=== PATIENT | female | born 1950 | race Caucasian/White ===

== ENCOUNTER 2018-04-20 10:32 | Inpatient (IN) | payer MEDICARE ==
--- NOTE | 2018-04-20 11:11 | Short Stay Summary ---
Short Stay Documentation - History Principal diagnosis: malfunctioning dialysis access Past Medical History: dialysis, ESRD Past Surgical History: Other (multiple B upper extremity accesses) Social history: other (recently moved from [place]) - Allergies and Medications Current Medications: Allergies No Known Allergies Allergy (Unverified 04/20/18 10:32) - Physical exam General appearance: no acute distress HEENT: Atraumatic Lungs: Normal air movement Breasts: deferred Gastrointestinal: normal Female Genitourinary: deferred Rectal Exam: deferred Extremities: abnormal (decreased thrill RUE fistula) Neurological: Normal gait, Normal speech, Normal tone - Brief post op/procedure progress note Date of procedure: 04/20/18 Pre-op diagnosis: malfunctioning dialysis access, hyperkalemia Post-op diagnosis: same Procedure: Ultrasound and fluoroscopic guided placement of vascath Anesthesia: local Surgeon: TOSHA QUEVEDO Estimated blood loss: minimal Pathology: none Condition: stable - Disposition Condition at discharge: Good Disposition: DC/TX-02 [facility] HOSP IP Short Stay Discharge Plan Activity: advance as tolerated Weight Bearing Status: Weight Bear as Tolerated Diet: regular Wound: keep clean and dry, per your surgeon's advice Follow up with: PRIMARY CARE, [Primary Care Provider] - 7 Days
[2018-04-20] MEDS ORDERED: HEPARIN/NS 5000 UNIT/500ML(CATH LAB) 500 ML IR ONE (13:01)
[2018-04-20] MEDS ORDERED: HEPARIN 10,000 UNITS/10 ML ONE (13:01)
[2018-04-20] MEDS ORDERED: XYLOCAINE 2% INFILTRATI ONE (13:01)
[2018-04-20] MEDS ORDERED: VERSED ONE (13:02)
[2018-04-20] MEDS ORDERED: SUBLIMAZE ONE (13:02)
[2018-04-20] MEDS ORDERED: SODIUM CHLORIDE FLUSH SYRINGE 10 ML IV PRN (13:40)
[2018-04-20] MEDS ORDERED: PROVENTIL IH PRN (13:40)
[2018-04-20] MEDS ORDERED: ZOFRAN IV PRN (13:40)
--- NOTE | 2018-04-20 13:42 | History and Physical Report ---
History of Present Illness Chief complaint: Fistula malfunction History of present illness: 68 YO Female with ESRD on HD (T,R,Sa), DM, HTN, PVD, Anemia. Pt admitted directly at the request of Dr. Burger. Pt found to have ESRD needing dialysis, as well as hyperkalemia. Pt admitted directly. Nephrology service consulted for urgent dialysis. Pt seen and evaluated postoperatively in the dialysis suits. Pt resting comfortable. Pt denies fever, chills, CP, Palpitations, NVD, No reported nursing events. Past History Past Medical History: diabetes, dialysis, ESRD, hypertension, PVD Past Surgical History: hernia repair, Other (multiple B upper extremity accesses) Social history: , other (recently moved from [place]) Family history: diabetes, hypertension Medications and Allergies Allergies Allergy/AdvReac Type Severity Reaction Status Date / Time No Known Allergies Allergy Unverified 04/20/18 10:32 Home Medications Medication Instructions Recorded Confirmed Last Taken Type Levemir VIAL 30 units SQ BID 04/20/18 04/20/18 04/19/18 History 30units Lispro Insulin [Humalog] 15 - 20 units SQ AC 04/20/18 04/20/18 04/19/18 History 20units Sucroferric Oxyhydroxide [Velphoro] 1 tab PO AC 04/20/18 04/20/18 04/19/18 History 2 tabs Active Meds: Active Medications Acetaminophen (Tylenol) 650 mg PO Q4H PRN PRN Reason: Pain MILD(1-3)/Fever >100.5/LOPEZ Albuterol (Proventil) 2.5 mg IH Q4HRT PRN PRN Reason: Shortness Of Breath Ondansetron HCl (Zofran) 4 mg IV Q8H PRN PRN Reason: Nausea And Vomiting Sodium Chloride (Sodium Chloride Flush Syringe 10 Ml) 10 ml IV BID ALEAH Sodium Chloride (Sodium Chloride Flush Syringe 10 Ml) 10 ml IV PRN PRN PRN Reason: LINE FLUSH Review of Systems Constitutional: no weight loss, no weight gain, no fever, no chills Ears, nose, mouth and throat: no ear pain, no ear discharge, no sinus pressure Breasts: no change in shape, no mass Cardiovascular: no chest pain, no palpitations, no edema, no lightheadedness Respiratory: no cough, no excessive sputum, no hemoptysis Gastrointestinal: no abdominal pain, no nausea, no vomiting, no diarrhea Genitourinary Female: no pelvic pain, no menorrhagia, no urinary frequency Rectal: no incontinence, no bleeding, no itching Musculoskeletal: no shooting arm pain, no low back pain, no leg numbness/tingling Integumentary: no rash, no redness, no wounds, no boils Neurological: no transient paralysis, no parathesias, no tingling, no tremors Psychiatric: no anxiety, no change in sleep habits, no insomnia Endocrine: no cold intolerance, no polyphagia, no polyuria, no flushing Hematologic/Lymphatic: no easy bruising, no lymphadenopathy Allergic/Immunologic: no urticaria, no allergic rhinitis, no wheezing Exam - Constitutional Vitals: Temp Pulse Resp BP Pulse Ox 98.1 F 99 H 16 198/78 99 04/20/18 11:11 04/20/18 11:11 04/20/18 11:11 04/20/18 11:11 04/20/18 11:11 General appearance: Present: mild distress - EENT Eyes: Present: PERRL ENT: hearing intact, clear oral mucosa - Neck Neck: Present: supple, normal ROM - Respiratory Respiratory effort: normal Respiratory: bilateral: CTA - Cardiovascular Heart Sounds: Present: S1 & S2. Absent: rub, click - Extremities Extremities: pulses symmetrical, No edema Peripheral Pulses: within normal limits - Abdominal General gastrointestinal: Present: soft, non-tender, non-distended, normal bowel sounds Female genitourinary: Present: normal - Integumentary Integumentary: Present: clear, warm, dry - Musculoskeletal Musculoskeletal: gait normal, strength equal bilaterally - Psychiatric Psychiatric: appropriate mood/affect, intact judgment & insight - Neurologic Neurologic: CNII-XII intact, moves all extremities Results - Labs CBC & Chem 7: 04/20/18 15:35 Labs: Abnormal lab results 04/20/18 Range/Units 11:20 Potassium 6.6 H* (3.6-5.0) mmol/L Assessment and Plan - Patient Problems (1) ESRD (end stage renal disease) Current Visit: Yes Status: Acute Plan to address problem: Nephrology consulted postoperatively for urgent dialysis, bmp, monitor uop q shift, avoid nephrotoxic agents. (2) HTN (hypertension) Current Visit: Yes Status: Acute Qualifiers: Hypertension type: essential hypertension Qualified Code(s): I10 - Essential (primary) hypertension Plan to address problem: monitor bp q shift, (3) DVT prophylaxis Current Visit: Yes Status: Acute Plan to address problem: scd to ble while in bed (4) Malfunction of arteriovenous dialysis fistula Current Visit: Yes Status: Acute Qualifiers: Encounter type: initial encounter Qualified Code(s): T82.590A - Other mechanical complication of surgically created arteriovenous fistula, initial encounter Plan to address problem: Vascular surgery consulted,
[2018-04-20] MEDS ORDERED: TYLENOL PO PRN (14:00)
[2018-04-20] MEDS ORDERED: KIONEX PO ONE (14:00)
[2018-04-20] MEDS ORDERED: CALCIUM GLUCONATE 1,000 MG in NACL 0.9% 100 ML IV ONE (14:00)
--- NOTE | 2018-04-20 15:11 | Operative Report ---
Operative Report Operative Report: Exam: Ultrasound and fluoroscopic guided placement of vascath Clinical indication: Patient with dialysis access malfunction and hyperkalemia Date: 04/20/2018 Procedure: Following an explanation of the risks, benefits and alternative; written informed consent was obtained. The patient was brought to the injury graphics suite placed in supine position on the examination table. Initial ultrasound evaluation of her right groin demonstrated a patent right common femoral vein. The patient's groin was prepped and draped in the usual sterile fashion. 1% lidocaine was used for anesthesia. Under ultrasound guidance, the right common femoral vein was cannulated with a 7 cm 18-gauge needle. 0.035 guidewire was advanced centrally under fluoroscopy. The needle was removed. Following serial dilation over the guidewire under fluoroscopy, a 30 cm dialysis catheter with pigtail was placed over the guidewi re advanced centrally under fluoroscopy. The guidewire was removed. All 3 ports returned nonpulsatile blood. The catheter was flushed and locked with appropriate volumes of heparin. The catheter was securely fastened to the skin surface using 3-0 nylon suture and a sterile dressing applied. The patient tolerated the procedure well. There were no immediate post procedure complications. Conscious sedation was administered under the guidance of radiologic nursing. Continuous cardio pulmonary monitoring was utilized. Impression: Ultrasound and fluoroscopic guided placement of VasCath via the right common femoral vein.
[2018-04-20] MEDS ORDERED: APRESOLINE IV ONE (15:18)
[2018-04-20] MEDS ORDERED: NACL 0.9% 100 ML IV PRN ×2 (15:39→16:30)
[2018-04-20 17:15] LABS: Hepatitis B Surface Antigen Non-Reactive (Negative); Hepatitis C Virus Antibody Non-Reactive (NonReactive)
[2018-04-20] MEDS ORDERED: LEVEMIR 30 UNIT SQ SCH (22:00)
[2018-04-20] MEDS: LANTUS SUB-Q SCH (23:30)
[2018-04-20] MEDS: SODIUM CHLORIDE FLUSH SYRINGE 10 ML IV SCH (23:30)
[2018-04-21 07:22] LABS: Calcium 7.9 mg/dL (8.4-10.2)
[2018-04-21] MEDS: HumaLOG SUB-Q SCH ×3 (08:56→13:56)
[2018-04-21] MEDS: LANTUS SUB-Q SCH (10:09)
[2018-04-21] MEDS: SODIUM CHLORIDE FLUSH SYRINGE 10 ML IV SCH ×2 (10:09→22:17)
[2018-04-21 13:08] LABS: Hematocrit 31.6 % (30.3-42.9); Hemoglobin 10.8 gm/dl (10.1-14.3); Mean Corpuscular HGB Conc 34 % (30-34); Mean Corpuscular Volume 94 fl (79-97); Platelet Count 121 K/mm3 (140-440); Red Blood Count 3.35 M/mm3 (3.65-5.03); Red Cell Distribution Width 13.5 % (13.2-15.2)
[2018-04-21] MEDS: SUCROFERRIC OXYHYDROXIDE PO SCH ×2 (13:11→17:37)
[2018-04-21] MEDS: HumuLIN R SUB-Q SCH ×3 (13:13→22:50)
--- NOTE | 2018-04-21 14:36 | Progress Note ---
Assessment and Plan ESRD on HD - consulted renal, on MWF schedule HTN, stable - cont to monitor Malfunctioning av access - s/p vascath placed - will follow VS recommendation Hyperkalemia, due to ESRD - monitor bmp DVT Px - heparin Subjective Date of service: 04/21/18 Principal diagnosis: malfunctioning dialysis access Interval history: pt seen and examined denies any chest pain s/p vascath placed yesterday for HD Objective - Constitutional Vitals: Vital Signs - 12hr 04/21/18 04/21/18 04/21/18 02:47 04:45 08:45 Temperature 98.9 F Pulse Rate 98 H Pulse Rate [ 102 H Right Radial] Respiratory 16 16 Rate Blood Pressure 164/65 O2 Sat by Pulse 97 96 97 Oximetry 04/21/18 11:46 Temperature 98.0 F Pulse Rate 90 Pulse Rate [ Right Radial] Respiratory 20 Rate Blood Pressure 158/57 O2 Sat by Pulse 96 Oximetry General appearance: Present: no acute distress, well-nourished - EENT Eyes: PERRL, EOM intact ENT: hearing intact, clear oral mucosa Ears: bilateral: normal - Neck Neck: supple, normal ROM - Respiratory Respiratory effort: normal Respiratory: bilateral: CTA - Cardiovascular Rhythm: regular Heart Sounds: Present: S1 & S2. Absent: gallop, rub Extremities: pulses intact, No edema, normal color, Full ROM - Gastrointestinal General gastrointestinal: Present: soft, non-tender, non-distended, normal bowel sounds - Integumentary Integumentary: clear, warm, dry - Musculoskeletal Musculoskeletal: 1, strength equal bilaterally - Neurologic Neurologic: moves all extremities - Psychiatric Psychiatric: memory intact, appropriate mood/affect, intact judgment & insight - Labs CBC & Chem 7: 04/21/18 12:40 04/21/18 06:29 Labs: Abnormal lab results 04/20/18 04/20/18 04/21/18 Range/Units 15:35 23:04 06:29 RBC (3.65-5.03) M/mm3 Plt Count (140-440) K/mm3 Potassium 5.3 H (3.6-5.0) mmol/L BUN 37 H (7-17) mg/dL Creatinine 8.2 H (0.7-1.2) mg/dL Glucose 120 H (65-100) mg/dL POC Glucose 167 H (70-105) Calcium 7.9 L (8.4-10.2) mg/dL 04/21/18 04/21/18 Range/Units 11:37 12:40 RBC 3.35 L (3.65-5.03) M/mm3 Plt Count 121 L (140-440) K/mm3 Potassium (3.6-5.0) mmol/L BUN (7-17) mg/dL Creatinine (0.7-1.2) mg/dL Glucose (65-100) mg/dL POC Glucose 67 L (70-105) Calcium (8.4-10.2) mg/dL
--- NOTE | 2018-04-21 15:49 | Consultation ---
History of Present Illness - Reason for Consult Consult date: 04/21/18 end stage renal disease Requesting physician: LUPE MONCADA - History of Present Illness 68 YO Female with ESRD on HD (T,R,Sa), DM, HTN, PVD, Anemia. Pt admitted directly at the request of Dr. Burger. Pt found to have ESRD needing dialysis, as well as hyperkalemia. Pt admitted directly. Nephrology service consulted for urgent dialysis. Pt seen and evaluated postoperatively in the dialysis suits. Pt resting comfortable. Pt denies fever, chills, CP, Palpitations, NVD, No reported nursing events. Past History Past Medical History: diabetes, dialysis, ESRD, hypertension, PVD Past Surgical History: hernia repair, Other (multiple B upper extremity accesses) Social history: , other (recently moved from [place]) Family history: diabetes, hypertension Review of Systems Constitutional: no weight loss, no weight gain, no fever, no chills Ears, nose, mouth and throat: no ear pain, no ear discharge, no sinus pressure Breasts: no change in shape, no mass Cardiovascular: no chest pain, no palpitations, no edema, no lightheadedness Respiratory: no cough, no excessive sputum, no hemoptysis Gastrointestinal: no abdominal pain, no nausea, no vomiting, no diarrhea Genitourinary Female: no pelvic pain, no menorrhagia, no urinary frequency Rectal: no incontinence, no bleeding, no itching Musculoskeletal: no shooting arm pain, no low back pain, no leg numbness/tingling Integumentary: no rash, no redness, no wounds, no boils Neurological: no transient paralysis, no parathesias, no tingling, no tremors Psychiatric: no anxiety, no change in sleep habits, no insomnia Endocrine: no cold intolerance, no polyphagia, no polyuria, no flushing Hematologic/Lymphatic: no easy bruising, no lymphadenopathy Allergic/Immunologic: no urticaria, no allergic rhinitis, no wheezing Past History Past Medical History: diabetes, dialysis, ESRD, hypertension, PVD Past Surgical History: hernia repair, Other (multiple B upper extremity accesses) Social history: , other (recently moved from [place]) Family history: diabetes, hypertension Medications and Allergies Allergies Allergy/AdvReac Type Severity Reaction Status Date / Time No Known Allergies Allergy Unverified 04/20/18 10:32 Home Medications Medication Instructions Recorded Confirmed Last Taken Type Levemir VIAL 30 units SQ BID 04/20/18 04/20/18 04/19/18 History 30units Lispro Insulin [Humalog] 15 - 20 units SQ AC 04/20/18 04/20/18 04/19/18 History 20units Sucroferric Oxyhydroxide [Velphoro] 1 tab PO AC 04/20/18 04/20/18 04/19/18 History 2 tabs Active Meds: Active Medications Acetaminophen (Tylenol) 650 mg PO Q4H PRN PRN Reason: Pain MILD(1-3)/Fever >100.5/LOPEZ Albuterol (Proventil) 2.5 mg IH Q4HRT PRN PRN Reason: Shortness Of Breath Sodium Chloride (Nacl 0.9%) 100 mls @ 999 mls/hr IV ROLLY PRN PRN Reason: Hypotension Insulin Human Regular (Humulin R) 0 units SUB-Q ACHS [facility]; Protocol Last Admin: 04/21/18 13:13 Dose: Not Given Documented by: Miscellaneous Medication (Sucroferric Oxyhydroxide [Velphoro]) 1 tab PO [facility] Last Admin: 04/21/18 13:11 Dose: 1 tab Documented by: Ondansetron HCl (Zofran) 4 mg IV Q8H PRN PRN Reason: Nausea And Vomiting Sodium Chloride (Sodium Chloride Flush Syringe 10 Ml) 10 ml IV BID [facility] Last Admin: 04/21/18 10:09 Dose: 10 ml Documented by: Sodium Chloride (Sodium Chloride Flush Syringe 10 Ml) 10 ml IV PRN PRN PRN Reason: LINE FLUSH Exam - Vital Signs Vital signs: Vital Signs Temp Pulse Resp BP Pulse Ox 98.1 F 99 H 16 198/78 99 04/20/18 11:11 04/20/18 11:11 04/20/18 11:11 04/20/18 11:11 04/20/18 11:11 - Physical Exam Narrative exam: General appearance: Present: mild distress - EENT Eyes: Present: PERRL ENT: hearing intact, clear oral mucosa - Neck Neck: Present: supple, normal ROM - Respiratory Respiratory effort: normal Respiratory: bilateral: CTA - Cardiovascular Heart Sounds: Present: S1 & S2. Absent: rub, click - Extremities Extremities: pulses symmetrical, No edema Peripheral Pulses: within normal limits - Abdominal General gastrointestinal: Present: soft, non-tender, non-distended, normal bowel sounds Female genitourinary: Present: normal - Integumentary Integumentary: Present: clear, warm, dry - Musculoskeletal Musculoskeletal: gait normal, strength equal bilaterally - Psychiatric Psychiatric: appropriate mood/affect, intact judgment & insight - Neurologic Neurologic: CNII-XII intact, moves all extremities Results - Lab Results 04/21/18 12:40 04/21/18 06:29 Most recent lab results Calcium 7.9 mg/dL (8.4-10.2) L 04/21/18 06:29 Assessment and Plan IMpression: * ESRD * HTN * malfunctioning av access * hyperkalemia Plan: * HD qMWF as inpatient * uf as tolerated * strict i/os * vasc cath per vascular, needs perm cath or thrombectomy prior to dc * daily lytes * ok to dc home from renal standpoint once perm cath placed or thrombectomy pe rformed
[2018-04-22] MEDS: HumuLIN R SUB-Q SCH ×4 (08:31→23:03)
[2018-04-22] MEDS: SUCROFERRIC OXYHYDROXIDE PO SCH ×3 (08:32→18:10)
[2018-04-22] MEDS ORDERED: XYLOCAINE 2% INFILTRATI ONE (08:47)
[2018-04-22] MEDS ORDERED: HEPARIN 10,000 UNITS/10 ML ONE (08:47)
[2018-04-22] MEDS ORDERED: HEPARIN/NS 5000 UNIT/500ML(CATH LAB) 1,000 ML IR ONE (08:47)
[2018-04-22] MEDS ORDERED: SUBLIMAZE ONE (09:03)
[2018-04-22] MEDS ORDERED: VERSED ONE (09:03)
[2018-04-22] MEDS ORDERED: NACL 0.9% 500 ML 500 ML ONE (09:04)
--- NOTE | 2018-04-22 09:50 | Operative Report ---
Operative Report Operative Report: Exam: Left upper extremity fistulogram, venoplasty Clinical indication: Patient with a history of hyperkalemia and malfunctioning dialysis access on admission status post placement of a Vas-Cath. Fistula placed in [place] Date: 04/22/2018 Procedure: Following an expiration of the risks, benefits and alternatives; written informed consent was obtained. The patient was brought to the angiographic suite placed in supine position on the examination table. Initial evaluation of her fistula demonstrated a thrill. The patient's left upper arm was prepped and draped in usual sterile fashion. 1% lidocaine was used for anesthesia. Under ultrasound guidance of fistula was cannulated towards the venous outflow using a 7 cm 21-gauge needle. A 0.018 guidewire was advanced centrally. The needle was removed and a micro-sheath placed. A 0.018 guidewire was exchanged for a 0.035 guidewire and the micro-sheath exchanged for a 7 [place] vascular sheath. Contrast was injected through the sheath and imaging obtained throughout the fistula and to the central veins. The patient has an unknown elevated brachial basilic fistula with VWING cannulation devices area in the body of the fistula was widely patent. 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 The Profore intravertebral catheter and 0.035 guidewire were then used to manipulate through the stenoses. The stenosis in the peripheral segment and the cephalic arch was ballooned using an 8 mm balloon insufflated nominal atmospheres for 45 seconds. The stenosis in the central segment of the subclavian vein was ballooned using an 8 mm balloon insufflated to nominal atmospheres for 60 seconds. Post venoplasty imaging was obtained which demonstrated residual less than 20% stenosis. This point, the guidewires she swerved removed and hemostasis achieved using 4-0 Vicryl suture and Dermabond. Manual compression was also used. The patient tolerated the procedure well. There were no immediate post procedure complications. Conscious sedation was performed under the guidance of radiologic nursing. Continuous cardiopulmonary monitoring was utilized. Impression: 1) Left upper extremity fistulogram demonstrating peripheral segment stenosis in the cephalic arch and central stenosis in the subclavian vein. 2) Venoplasty of these lesions as described with residual less than 20% stenosis. Given the central venous stenosis, the patient will need to return in 1 month for repeat venoplasty of these lesions. She may require DCB venoplasty. 3) Cannulation should begin in the fistula with a dialysis nurse comfortable with cannulating VWING cannulation devices.
--- NOTE | 2018-04-22 09:52 | Event Note ---
Date: 04/22/18 Cannulation of fistula may begin in a nurse experienced with VWING cannulation devices
[2018-04-22] MEDS ORDERED: NACL 0.9 (PRIMING MACHINE ONLY DIALYSIS) MC ONE (12:09)
--- NOTE | 2018-04-22 12:48 | Progress Note ---
Assessment and Plan IMpression: * ESRD * HTN * malfunctioning av access * hyperkalemia Plan: * HD qMWF as inpatient * uf as tolerated * strict i/os * vasc cath per vascular, needs perm cath or thrombectomy prior to dc * daily lytes * ok to dc home from renal standpoint if av access on s/p thrombectomy Subjective Date of service: 04/22/18 Principal diagnosis: malfunctioning dialysis access Interval history: resting in bed today Objective - Exam Narrative Exam: General appearance: Present: mild distress - EENT Eyes: Present: PERRL ENT: hearing intact, clear oral mucosa - Neck Neck: Present: supple, normal ROM - Respiratory Respiratory effort: normal Respiratory: bilateral: CTA - Cardiovascular Heart Sounds: Present: S1 & S2. Absent: rub, click - Extremities Extremities: pulses symmetrical, No edema Peripheral Pulses: within normal limits - Abdominal General gastrointestinal: Present: soft, non-tender, non-distended, normal bowel sounds Female genitourinary: Present: normal - Integumentary Integumentary: Present: clear, warm, dry - Musculoskeletal Musculoskeletal: gait normal, strength equal bilaterally - Psychiatric Psychiatric: appropriate mood/affect, intact judgment & insight - Neurologic Neurologic: CNII-XII intact, moves all extremities - Vital Signs Vital signs: Vital Signs - 12hr 04/22/18 04/22/18 04/22/18 04:29 08:35 11:00 Temperature 98.6 F 97.8 F Pulse Rate 92 H 89 Respiratory 20 20 Rate Blood Pressure 190/71 163/75 O2 Sat by Pulse 97 97 Oximetry 04/22/18 04/22/18 04/22/18 11:15 11:30 11:45 Temperature Pulse Rate 93 H 94 H 95 H Respiratory Rate Blood Pressure 168/71 169/76 164/66 O2 Sat by Pulse Oximetry 04/22/18 04/22/18 12:00 12:15 Temperature Pulse Rate 94 H 97 H Respiratory Rate Blood Pressure 162/67 162/67 O2 Sat by Pulse Oximetry - Lab 04/21/18 12:40 04/21/18 06:29 Most recent lab results Calcium 7.9 mg/dL (8.4-10.2) L 04/21/18 06:29 Medications & Allergies - Medications Allergies/Adverse Reactions: Allergies No Known Allergies Allergy (Unverified 04/20/18 10:32) Home Medications: Home Medications Medication Instructions Recorded Confirmed Last Taken Type Levemir VIAL 30 units SQ BID 04/20/18 04/20/18 04/19/18 History 30units Lispro Insulin [Humalog] 15 - 20 units SQ AC 04/20/18 04/20/18 04/19/18 History 20units Sucroferric Oxyhydroxide [Velphoro] 1 tab PO AC 04/20/18 04/20/18 04/19/18 History 2 tabs Active Medications: Generic Name Dose Route Start Last Admin Trade Name Freq PRN Reason Stop Dose Admin Acetaminophen 650 mg 04/20/18 14:00 Tylenol PO Q4H PRN Pain MILD(1-3)/Fever >100.5/LOPEZ Albuterol 2.5 mg 04/20/18 13:40 Proventil IH Q4HRT PRN Shortness Of Breath Sodium Chloride 100 mls @ 999 mls/hr 04/20/18 15:39 Nacl 0.9% IV ROLLY PRN Hypotension Insulin Human Regular 0 units 04/21/18 12:30 04/22/18 08:31 Humulin R SUB-Q Not Given [facility] Protocol Miscellaneous Medication 1 tab 04/21/18 11:30 04/22/18 08:32 Sucroferric Oxyhydroxide [Velphoro] PO Not Given [facility] Ondansetron HCl 4 mg 04/20/18 13:40 Zofran IV Q8H PRN Nausea And Vomiting Sodium Chloride 10 ml 04/20/18 22:00 04/21/18 22:17 Sodium Chloride Flush Syringe 10 Ml IV 10 ml BID [facility] Administration Sodium Chloride 10 ml 04/20/18 13:40 Sodium Chloride Flush Syringe 10 Ml IV PRN PRN LINE FLUSH
--- NOTE | 2018-04-22 13:16 | Event Note ---
Date: 04/22/18 Patient underwent venoplasty of cephalic arch stenosis and subclavian vein stenosis. Dialysis was attempted through the fistula afterwards with p ersistently high venous pressures. The patient will need to undergo repeat venoplasty with likely drug coated balloons. This will be scheduled for Friday prior to her dialysis session.
--- NOTE | 2018-04-22 13:48 | Progress Note ---
Assessment and Plan ESRD on HD - consulted renal, on MWF schedule HTN, stable - cont to monitor Malfunctioning av access - s/p vascath placed - VS surgery consulted -Patient underwent venoplasty of cephalic arch stenosis and subclavian vein stenosis today am, but will need to undergo repeat venoplasty with likely drug coated balloons. This is planned to scheduled for Friday prior to her dialysis session. Hyperkalemia, due to ESRD - monitor bmp DVT Px - heparin Physical exam: General appearance: Present: no acute distress, well-nourished - EENT Eyes: PERRL, EOM intact ENT: hearing intact, clear oral mucosa Ears: bilateral: normal - Neck Neck: supple, normal ROM - Respiratory Respiratory effort: normal Respiratory: bilateral: CTA - Cardiovascular Rhythm: regular Heart Sounds: Present: S1 & S2. Absent: gallop, rub Extremities: pulses intact, No edema, normal color, Full ROM - Gastrointestinal General gastrointestinal: Present: soft, non-tender, non-distended, normal bowel sounds - Integumentary Integumentary: clear, warm, dry - Musculoskeletal Musculoskeletal: 1, strength equal bilaterally - Neurologic Neurologic: moves all extremities - Psychiatric Psychiatric: memory intact, appropriate mood/affect, intact judgment & insight Subjective Date of service: 04/22/18 Principal diagnosis: malfunctioning dialysis access Interval history: pt seen and examined denies any chest pain s/p angioplasty and now getting HD today Objective - Constitutional Vitals: Vital Signs - 12hr 04/22/18 04/22/18 04/22/18 04:29 08:35 11:00 Temperature 98.6 F 97.8 F Pulse Rate 92 H 89 Respiratory 20 20 Rate Blood Pressure 190/71 163/75 O2 Sat by Pulse 97 97 Oximetry 04/22/18 04/22/18 04/22/18 11:15 11:30 11:45 Temperature Pulse Rate 93 H 94 H 95 H Respiratory Rate Blood Pressure 168/71 169/76 164/66 O2 Sat by Pulse Oximetry 04/22/18 04/22/18 12:00 12:15 Temperature Pulse Rate 94 H 97 H Respiratory Rate Blood Pressure 162/67 162/67 O2 Sat by Pulse Oximetry - Labs CBC & Chem 7: 04/21/18 12:40 04/21/18 06:29 Labs: Abnormal lab results 04/21/18 04/21/18 04/22/18 Range/Units 16:16 21:15 07:37 POC Glucose 163 H 167 H 150 H (70-105)
[2018-04-22] MEDS: SODIUM CHLORIDE FLUSH SYRINGE 10 ML IV SCH ×2 (15:38→23:04)
[2018-04-23] MEDS: HumuLIN R SUB-Q SCH ×4 (08:30→22:00)
[2018-04-23] MEDS: SUCROFERRIC OXYHYDROXIDE PO SCH ×3 (08:31→17:36)
[2018-04-23] MEDS: SODIUM CHLORIDE FLUSH SYRINGE 10 ML IV SCH ×2 (09:29→21:23)
--- NOTE | 2018-04-23 14:33 | Progress Note ---
Assessment and Plan IMpression: * ESRD * HTN * malfunctioning av access * hyperkalemia Plan: * HD qMWF as inpatient * uf as tolerated * strict i/os * vasc cath per vascular, plans for angioplasty in am * daily lytes Subjective Date of service: 04/23/18 Principal diagnosis: malfunctioning dialysis access Interval history: resting in bed today Objective - Exam Narrative Exam: General appearance: Present: mild distress - EENT Eyes: Present: PERRL ENT: hearing intact, clear oral mucosa - Neck Neck: Present: supple, normal ROM - Respiratory Respiratory effort: normal Respiratory: bilateral: CTA - Cardiovascular Heart Sounds: Present: S1 & S2. Absent: rub, click - Extremities Extremities: pulses symmetrical, No edema Peripheral Pulses: within normal limits - Abdominal General gastrointestinal: Present: soft, non-tender, non-distended, normal bowel sounds Female genitourinary: Present: normal - Integumentary Integumentary: Present: clear, warm, dry - Musculoskeletal Musculoskeletal: gait normal, strength equal bilaterally - Psychiatric Psychiatric: appropriate mood/affect, intact judgment & insight - Neurologic Neurologic: CNII-XII intact, moves all extremities - Vital Signs Vital signs: Vital Signs - 12hr 04/23/18 04/23/18 04/23/18 04:49 06:32 10:40 Temperature 99.0 F Pulse Rate 94 H 98 H Respiratory 20 18 Rate Blood Pressure 174/59 152/65 O2 Sat by Pulse 97 96 100 Oximetry 04/23/18 12:29 Temperature 97.9 F Pulse Rate Respiratory 20 Rate Blood Pressure 148/50 O2 Sat by Pulse Oximetry - Lab 04/21/18 12:40 04/21/18 06:29 Most recent lab results Calcium 7.9 mg/dL (8.4-10.2) L 04/21/18 06:29 Medications & Allergies - Medications Allergies/Adverse Reactions: Allergies No Known Allergies Allergy (Unverified 04/20/18 10:32) Home Medications: Home Medications Medication Instructions Recorded Confirmed Last Taken Type Levemir VIAL 30 units SQ BID 04/20/18 04/20/18 04/19/18 History 30units Lispro Insulin [Humalog] 15 - 20 units SQ AC 04/20/18 04/20/18 04/19/18 History 20units Sucroferric Oxyhydroxide [Velphoro] 1 tab PO AC 04/20/18 04/20/18 04/19/18 History 2 tabs Active Medications: Generic Name Dose Route Start Last Admin Trade Name Freq PRN Reason Stop Dose Admin Acetaminophen 650 mg 04/20/18 14:00 Tylenol PO Q4H PRN Pain MILD(1-3)/Fever >100.5/LOPEZ Albuterol 2.5 mg 04/20/18 13:40 Proventil IH Q4HRT PRN Shortness Of Breath Sodium Chloride 100 mls @ 999 mls/hr 04/20/18 15:39 Nacl 0.9% IV ROLLY PRN Hypotension Insulin Human Regular 0 units 04/21/18 12:30 04/23/18 12:30 Humulin R SUB-Q Not Given ACHS ALEAH Protocol Miscellaneous Medication 1 tab 04/21/18 11:30 04/23/18 12:45 Sucroferric Oxyhydroxide [Velphoro] PO 1 tab AC ALEAH Administration Ondansetron HCl 4 mg 04/20/18 13:40 Zofran IV Q8H PRN Nausea And Vomiting Sodium Chloride 10 ml 04/20/18 22:00 04/23/18 09:29 Sodium Chloride Flush Syringe 10 Ml IV 10 ml BID ALEAH Administration Sodium Chloride 10 ml 04/20/18 13:40 Sodium Chloride Flush Syringe 10 Ml IV PRN PRN LINE FLUSH
--- NOTE | 2018-04-23 15:40 | Progress Note ---
Assessment and Plan ESRD on HD - consulted renal, on MWF schedule HTN, stable - cont to monitor Malfunctioning av access - s/p vascath placed - VS surgery consulted -Patient underwent venoplasty of cephalic arch stenosis and subclavian vein stenosis today am, but will need to undergo repeat venoplasty with likely drug coated balloons. This is planned to scheduled for Friday prior to her dialysis session. Hyperkalemia, due to ESRD - monitor bmp DVT Px - heparin Physical exam: General appearance: Present: no acute distress, well-nourished - EENT Eyes: PERRL, EOM intact ENT: hearing intact, clear oral mucosa Ears: bilateral: normal - Neck Neck: supple, normal ROM - Respiratory Respiratory effort: normal Respiratory: bilateral: CTA - Cardiovascular Rhythm: regular Heart Sounds: Present: S1 & S2. Absent: gallop, rub Extremities: pulses intact, No edema, normal color, Full ROM - Gastrointestinal General gastrointestinal: Present: soft, non-tender, non-distended, normal bowel sounds - Integumentary Integumentary: clear, warm, dry - Musculoskeletal Musculoskeletal: 1, strength equal bilaterally - Neurologic Neurologic: moves all extremities - Psychiatric Psychiatric: memory intact, appropriate mood/affect, intact judgment & insight Subjective Date of service: 04/23/18 Principal diagnosis: malfunctioning dialysis access Interval history: pt seen and examined denies any chest pain tolerating diet Objective - Constitutional Vitals: Vital Signs - 12hr 04/23/18 04/23/18 04/23/18 04:49 06:32 10:40 Temperature 99.0 F Pulse Rate 94 H 98 H Respiratory 20 18 Rate Blood Pressure 174/59 152/65 O2 Sat by Pulse 97 96 100 Oximetry 04/23/18 12:29 Temperature 97.9 F Pulse Rate Respiratory 20 Rate Blood Pressure 148/50 O2 Sat by Pulse Oximetry - Labs CBC & Chem 7: 04/21/18 12:40 04/21/18 06:29 Labs: Abnormal lab results 04/22/18 04/22/18 04/23/18 Range/Units 16:34 21:38 08:22 POC Glucose 201 H 215 H 205 H (70-105) 04/23/18 Range/Units 12:32 POC Glucose 177 H (70-105)
[2018-04-24] MEDS: HumuLIN R SUB-Q SCH ×3 (08:00→16:30)
[2018-04-24] MEDS: SUCROFERRIC OXYHYDROXIDE PO SCH ×3 (08:00→17:52)
[2018-04-24] MEDS ORDERED: HEPARIN/NS 5000 UNIT/500ML(CATH LAB) 1,000 ML IR ONE (09:38)
[2018-04-24] MEDS ORDERED: HEPARIN 10,000 UNITS/10 ML ONE (09:39)
[2018-04-24] MEDS ORDERED: XYLOCAINE 2% INFILTRATI ONE (09:39)
[2018-04-24] MEDS ORDERED: NACL 0.9% 500 ML 500 ML ONE (09:39)
[2018-04-24] MEDS ORDERED: ANCEF/STERILE WATER 2 GM/20 ML 2 GM/20 ML SYRINGE IV ONE (09:39)
[2018-04-24] MEDS: SODIUM CHLORIDE FLUSH SYRINGE 10 ML IV SCH (10:00)
[2018-04-24] MEDS: SUBLIMAZE ONE ×2 (10:27→10:45)
[2018-04-24] MEDS: VERSED ONE ×2 (10:27→10:45)
--- NOTE | 2018-04-24 11:57 | Operative Report ---
Operative Report Operative Report: EXAM: Ultrasound guided access of the left arm AV brachiocephalic AV fistula Placement of a 7 Namibian sheath towards the venous outflow Fistulogram Angioplasty of the cephalic arch with a 8 mm x 2 cm cutting angioplasty balloon and 10 mm Shelton angioplasty balloon Angioplasty of the subclavian vein with an 8 mm x 2 cm cutting angioplasty balloon and a 12 mm angioplasty balloon DATE: 04/24/18 NEEDLE SETTER: TOSHA ESCALANTE MD INDICATION: Left AV fistula malfunction MEDICATIONS: Please see nursing report for full details. PROCEDURE: The risks, benefits, and alternatives of the procedure were discussed and written informed consent was obtained. The patient was transported in stable condition to the angiography suite. The patient's left arm AV cephalic vein was assessed by ultrasound and was patent. The patient was prepped and draped in a sterile fashion. Under ultrasound guidance, the left arm AV brachio cephalic fistula was accessed with a 21-gauge micropuncture needle. The area was anesthetized prior to access. 0.018 inch wire was advanced through the micropuncture needle into the fistula and then the needle was exchanged for a 5 Namibian transitional dilator. The inner dilator and wire were removed and a 0.035 inch wire was advanced through the venous outflow. The transitional dilator was exchanged for a 7 [place]ian short sheath. Fistulogram was performed of the venous outflow and central veins. Reflux into the arterial anastomosis was performed. Subtraction angiography demonstrated no anastomotic narrowing with patency of the brachial artery proximal distal to the anastomosis and patency of the peripheral, and mid cephalic vein. Cephalic arch had a focal 70% narrowing. The subclavian vein had a focal 40% narrowing. The left innominate vein and SVC were patent. V-wing devices were within the cephalic vein. Cephalic vein was greater than 1 cm deep. 8 mm x 2 cm cutting angioplasty balloon was used to perform angioplasty of the cephalic arch and the subclavian vein. 12 mm x 6 cm angioplasty balloon was used to perform angioplasty of the left subclavian vein. 10 mm angioplasty balloon is used perform angioplasty of the cephalic arch. Digital subtraction angiography was performed demonstrating less than 10% residual narrowing of the cephalic arch and subclavian vein. The wire was removed and the site was closed with a 3-0 Vicryl suture. The sheath was then removed. Hemostasis was achieved with slight manual compression. The patient was transported from the angiography suite to the floor in stable condition. IMPRESSION: Successful angioplasty of the peripheral dialysis access. Successful angioplasty of the central dialysis access. RECOMMENDATION: The AV fistula is greater than 1 cm deep. Discussed with the dialysis technologist that they will require accessing the fistula through the v-wing devices in order to obtain proper flow through the fistula as it is too deep for access otherwise.
--- NOTE | 2018-04-24 11:59 | Event Note ---
Date: 04/24/18 Fistula has excellent flow through it. The issue is that the fistula is too deep for access without use of the v-wing devices. These need to be used. Once the fistula has been appropriately accessed with the v-wing devices, then the vascath can be removed.
--- NOTE | 2018-04-24 13:21 | Progress Note ---
Assessment and Plan IMpression: * ESRD * HTN * malfunctioning av access * hyperkalemia Plan: * Patient is currently undergoing hemodialysis via her AV fistula. * Continue HD qMWF as inpatient * uf as tolerated * strict i/os * She does have a right femoral Vas-Cath which will need to be removed * daily lytes * Her hyperkalemia has been corrected. She is also clinically euvolemic * Patient advised to resume her outpatient dialysis on TTS schedule once discharged Subjective Date of service: 04/24/18 Principal diagnosis: malfunctioning dialysis access Interval history: Patient is status post angioplasty for AV access. Vascular surgery notes appreciated. Her AV fistula has a V wing and about 1 cm deep. Her AV fistula has been accessed and she is currently undergoing hemodialysis. Patient denies any shortness of breath. Objective - Vital Signs Vital signs: Vital Signs - 12hr 04/24/18 05:31 Temperature 97.7 F Pulse Rate 91 H Respiratory 18 Rate Blood Pressure 150/57 O2 Sat by Pulse 97 Oximetry - General Appearance General appearance: well-developed, well-nourished, appears stated age EENT: PERRL, mucous membranes moist Neck: no JVD, no thyromegaly, no carotid bruit, supple Respiratory: Present: Clear to Ascultation Cardiology: regular, normal heart rate, S1S2, no murmurs Gastrointestinal: normal, normoactive bowel sounds Integumentary: no rash, other (no edema. AV fistula in her left upper arm. Cannulated for dialysis. Right femoral Vas-Cath in place) - Lab 04/21/18 12:40 04/21/18 06:29 Most recent lab results Calcium 7.9 mg/dL (8.4-10.2) L 04/21/18 06:29 Medications & Allergies - Medications Allergies/Adverse Reactions: Allergies No Known Allergies Allergy (Unverified 04/20/18 10:32) Home Medications: Home Medications Medication Instructions Recorded Confirmed Last Taken Type Levemir VIAL 30 units SQ BID 04/20/18 04/20/18 04/19/18 History 30units Lispro Insulin [Humalog] 15 - 20 units SQ AC 04/20/18 04/20/18 04/19/18 History 20units Sucroferric Oxyhydroxide [Velphoro] 1 tab PO AC 04/20/18 04/20/18 04/19/18 History 2 tabs Active Medications: Generic Name Dose Route Start Last Admin Trade Name Freq PRN Reason Stop Dose Admin Acetaminophen 650 mg 04/20/18 14:00 Tylenol PO Q4H PRN Pain MILD(1-3)/Fever >100.5/LOPEZ Albuterol 2.5 mg 04/20/18 13:40 Proventil IH Q4HRT PRN Shortness Of Breath Sodium Chloride 100 mls @ 999 mls/hr 04/20/18 15:39 Nacl 0.9% IV ROLLY PRN Hypotension Insulin Human Regular 0 units 04/21/18 12:30 04/24/18 11:30 Humulin R SUB-Q Not Given ACHS ALEAH Protocol Miscellaneous Medication 1 tab 04/21/18 11:30 04/24/18 11:30 Sucroferric Oxyhydroxide [Velphoro] PO Not Given AC ALEAH Ondansetron HCl 4 mg 04/20/18 13:40 Zofran IV Q8H PRN Nausea And Vomiting Sodium Chloride 10 ml 04/20/18 22:00 04/24/18 10:00 Sodium Chloride Flush Syringe 10 Ml IV Not Given BID ALEAH Sodium Chloride 10 ml 04/20/18 13:40 Sodium Chloride Flush Syringe 10 Ml IV PRN PRN LINE FLUSH
--- NOTE | 2018-04-24 14:27 | Discharge Summary ---
Providers - Providers Date of Admission: 04/20/18 13:40 Date of discharge: 04/24/18 Attending physician: NAZARIO NIÑO 04/20/18 13:42 Consult to Physician [CONS] Routine Comment: Consulting Provider: DWIGHT SHANNON Physician Instructions: Reason For Exam: esrd 04/21/18 15:15 Consult to Physician [CONS] Routine Comment: Consulting Provider: TOSHA BURGER Physician Instructions: Reason For Exam: malfunctioning AV graft Primary care physician: PUBLIC RELATIONS ANALYST Hospitalization Condition: Good Hospital course: 68 YO Female with h/o ESRD on HD (T,R,Sa), DM, HTN, PVD, Anemia admitted directly at the request of Dr. Burger. Patient found to have urgent need for dialysis, as well as hyperkalemia. Nephrology service consulted for urgent dialysis. She also noted to have malfunctioning avf access, vascular consulted for further management. Discharge diagnosis and management: ESRD on HD - consulted renal for HD, on MWF schedule Malfunctioning avf access - s/p vascath placed for emergent HD - VS surgery consulted Patient underwent venoplasty of cephalic arch stenosis and subclavian vein stenosis followed by repeat venoplasty. The AV fistula is greater than 1 cm deep. VS recommended accessing the fistula through the v-wing devices in order to obtain proper flow through the fistula as it is too deep for access otherwise. patient tolerated HD with AV fistula. Vascath removed before d/c HTN, stable on current meds DM type 2, cont home insulin regimen. Hyperkalemia, due to ESRD - resolved with HD DVT Px - heparin Physical exam: General appearance: Present: no acute distress, well-nourished - EENT Eyes: PERRL, EOM intact ENT: hearing intact, clear oral mucosa Ears: bilateral: normal - Neck Neck: supple, normal ROM - Respiratory Respiratory effort: normal Respiratory: bilateral: CTA - Cardiovascular Rhythm: regular Heart Sounds: Present: S1 & S2. Absent: gallop, rub Extremities: pulses intact, No edema, normal color, Full ROM - Gastrointestinal General gastrointestinal: Present: soft, non-tender, non-distended, normal bowel sounds - Integumentary Integumentary: clear, warm, dry - Musculoskeletal Musculoskeletal: 1, strength equal bilaterally - Neurologic Neurologic: moves all extremities - Psychiatric Psychiatric: memory intact, appropriate mood/affect, intact judgment & insight Disposition: DC- TO HOME OR SELFCARE Time spent for discharge: 34 minutes Core Measure Documentation - Palliative Care Palliative Care/ Comfort Measures: Not Applicable - Core Measures Any of the following diagnoses?: none Exam - Constitutional Vitals: Temp Pulse Resp BP Pulse Ox 98.2 F 93 H 16 135/63 97 04/24/18 12:40 04/24/18 14:00 04/24/18 12:40 04/24/18 14:00 04/24/18 05:31 Plan Activity: advance as tolerated Weight Bearing Status: Weight Bear as Tolerated Diet: renal Follow up with: PRIMARY CAREMD [Primary Care Provider] - 7 Days
[2018-04-24] MEDS ORDERED: NACL 0.9 (PRIMING MACHINE ONLY DIALYSIS) MC ONE (15:05)
[2018-04-24] MEDS ORDERED: TRIPLE ANTIBIOTIC TP ONE (15:08)
[2018-04-26 11:28] VITALS: BP 141/51
== END 2018-04-24 18:28 | disposition home or self-care (01) | DRG 252 ==
LOC: CATHLABREC 10:32 → 3A 13:40
PROVIDERS: ADMIT Internal Medicine; ATTEND Internal Medicine
PROC: 5A1D70Z Performance of Urinary Filtration, Intermittent, Less than 6 Hours Per Day (ICD-10-PCS; 2018-04-20)
PROC: 06HM33Z Insertion of Infusion Device into Right Femoral Vein, Percutaneous Approach (ICD-10-PCS; 2018-04-20)
PROC: B51B1ZA Fluoroscopy of Right Lower Extremity Veins using Low Osmolar Contrast, Guidance (ICD-10-PCS; 2018-04-20)
PROC: B54BZZA Ultrasonography of Right Lower Extremity Veins, Guidance (ICD-10-PCS; 2018-04-20)
PROC: 05763ZZ Dilation of Left Subclavian Vein, Percutaneous Approach (ICD-10-PCS; 2018-04-22)
PROC: 5A1D70Z Performance of Urinary Filtration, Intermittent, Less than 6 Hours Per Day (ICD-10-PCS; 2018-04-22)
PROC: 05743ZZ Dilation of Left Innominate Vein, Percutaneous Approach (ICD-10-PCS; 2018-04-22)
PROC: 05763ZZ Dilation of Left Subclavian Vein, Percutaneous Approach (ICD-10-PCS; principal; 2018-04-24)
PROC: 5A1D70Z Performance of Urinary Filtration, Intermittent, Less than 6 Hours Per Day (ICD-10-PCS; 2018-04-24)
PROC: 05743ZZ Dilation of Left Innominate Vein, Percutaneous Approach (ICD-10-PCS; 2018-04-24)
PROC: B51W1ZZ Fluoroscopy of Dialysis Shunt/Fistula using Low Osmolar Contrast (ICD-10-PCS; 2018-04-24)
PROC: B51N1ZZ Fluoroscopy of Left Upper Extremity Veins using Low Osmolar Contrast (ICD-10-PCS; 2018-04-24)
PROC: B5181ZZ Fluoroscopy of Superior Vena Cava using Low Osmolar Contrast (ICD-10-PCS; 2018-04-24)
DX: T82.858A Stenosis of other vascular prosthetic devices, implants and grafts, initial encounter (principal); N18.6 End stage renal disease; I87.1 Compression of vein; I12.0 Hypertensive chronic kidney disease with stage 5 chronic kidney disease or end stage renal disease; E11.51 Type 2 diabetes mellitus with diabetic peripheral angiopathy without gangrene; Y83.2 Surgical operation with anastomosis, bypass or graft as the cause of abnormal reaction of the patient, or of later complication, without mention of misadventure at the time of the procedure; E11.22 Type 2 diabetes mellitus with diabetic chronic kidney disease; Z99.2 Dependence on renal dialysis; E87.5 Hyperkalemia; Z83.3 Family history of diabetes mellitus; Z82.49 Family history of ischemic heart disease and other diseases of the circulatory system; Z79.4 Long term (current) use of insulin; Y92.098 Other place in other non-institutional residence as the place of occurrence of the external cause
CPT/HCPCS: 36415; 36556; 36902; 76937; 80048; 80074; 82962; 84132; 85027; 96374; 96375; G0378; A6250; C1725; C1751; C1752; C1769; C1894; J0360; J0610; J0690; J1644; J1815; J2250; J3010; J7030; J7040; Q9967

== ENCOUNTER 2018-05-18 14:21 | Emergency (ER) | payer MEDICARE ==
--- NOTE | 2018-05-18 14:39 | Emergency Department Report ---
Suture/Staple Removal - [facility] Chief Complaint: Laceration/Recheck/Suture Stated Complaint: SUTURE REMOVAL Time Seen by Provider: 05/18/18 14:27 Wound Location: left arm ED Review of Systems ROS: Stated complaint: SUTURE REMOVAL Other details as noted in HPI Constitutional: denies: chills, fever Eyes: denies: eye pain, eye discharge, vision change ENT: denies: ear pain, throat pain Respiratory: denies: cough, shortness of breath, wheezing Cardiovascular: denies: chest pain, palpitations Endocrine: no symptoms reported Gastrointestinal: denies: abdominal pain, nausea, diarrhea Genitourinary: denies: urgency, dysuria, discharge Musculoskeletal: denies: back pain, joint swelling, arthralgia Skin: denies: rash, lesions Neurological: denies: headache, weakness, paresthesias Psychiatric: denies: anxiety, depression Hematological/Lymphatic: denies: easy bleeding, easy bruising ED Past Medical Hx - Past Medical History Hx Hypertension: Yes Hx Diabetes: Yes Hx Renal Disease: Yes - Surgical History Additional Surgical History: AV graft left arm - Social History Smoking Status: Never Smoker Substance Use Type: None - Medications Home Medications: Home Medications Medication Instructions Recorded Confirmed Last Taken Type Levemir VIAL 30 units SQ BID 04/20/18 04/20/18 04/19/18 History 30units Lispro Insulin [Humalog] 15 - 20 units SQ AC 04/20/18 04/20/18 04/19/18 History 20units Sucroferric Oxyhydroxide [Velphoro] 1 tab PO AC 04/20/18 04/20/18 04/19/18 History 2 tabs Clindamycin [Clindamycin CAP] 300 mg PO Q8H #21 cap 05/18/18 Unknown Rx Suture Removal Exam - Exam General: Vital signs noted. No distress. Alert and acting appropriately. Wound: Yes Pathologic Erythema, No Tenderness, No Drainage, No Pus, No Wound Dehiscence Other Systems: All other systems reviewed and are unremarkable. ED Course - Reevaluation(s) Reevaluation #1: 05/18/18 14:36 Patient is speaking in full sentences with no signs of distress noted. ED Recheck MDM - Medical Decision Making This is a 68-year-old female that presents with left arm suture removal. Patient had a suture removal to that area but dialysis was concerned that suture is still there. Upon exam, there is no visualize suture but does has some redness with crusting. No abscess or swelling. Critical care attestation.: If time is entered above; I have spent that time in minutes in the direct care of this critically ill patient, excluding procedure time. ED Disposition Clinical Impression: Cellulitis Qualifiers: Site of cellulitis: extremity Site of cellulitis of extremity: upper extremity Laterality: left Qualified Code(s): L03.114 - Cellulitis of left upper limb Disposition: - TO HOME OR SELFCARE Is pt being admited?: No Does the pt Need Aspirin: No Condition: Stable Instructions: Cellulitis (ED) Additional Instructions: Follow-up with your primary care doctor in 3-5 days or if symptoms worsen and continue return to the ED as soon as possible. Prescriptions: Clindamycin [Clindamycin CAP] 300 mg PO Q8H #21 cap Referrals: PRIMARY CAREMD [Referring] - 3-5 Days NATHEN REYES MD [Staff Physician] - 3-5 Days [facility] [Outside] - 3-5 Days
== END 2018-05-18 14:40 | disposition home or self-care (01) ==
LOC: ED 14:21